=== PATIENT | female | born 2000 | race Caucasian/White ===

== ENCOUNTER 2019-12-12 22:49 | Emergency (ER) | payer OTHER ==
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
[2019-12-12] MEDS ORDERED: FLU Vacc QS2019-20(6MOS+)/PF 60 MCG/0.5 ML SYRINGE IM ONE (23:45)
== END 2019-12-12 23:55 | disposition home or self-care (01) ==
LOC: JD.ED 22:49
DX: T19.2XXA Foreign body in vulva and vagina, initial encounter (principal); Z23 Encounter for immunization; E66.9 Obesity, unspecified; Z68.42 Body mass index [BMI] 45.0-49.9, adult
CPT/HCPCS: 90686; 99283; 99283-25; G0008